=== PATIENT | female | born 1985 | race Caucasian/White ===

== ENCOUNTER 2022-08-25 17:03 | Inpatient (IN) | payer OTHER, SELFPAY ==
[2022-08-25 18:00] VITALS: BP 120/72; PULSE 110; TEMP 36.8; O2SAT 95
--- NOTE | 2022-08-25 18:49 | PC.ADMIT ---
pt is a 36 year old female who arrive to [facility] with possible suicidal attempt for taking 10 Benadryl and AH/VH. pt tox screen was negative. pt has a PMH of anticholinhergic toxicity, schizophrenia, alcohol use disorder, cocaine use disorder, and meth use. during admission, pt appear calm and collected, but tired. pt answered all the question during admission. pt reports no AH/VH, but was looking at something in the corner of the room. pt is noncompliant with meds. pt went to room to sleep.
[2022-08-25] MEDS: LORazepam 1 MG TABLET 2 MG PO (19:35)
[2022-08-26] MEDS: risperiDONE 2 MG TABLET PO ×2 (08:26→19:51)
[2022-08-26] MEDS: Benztropine Mesylate 1 MG TABLET PO ×2 (08:26→19:52)
[2022-08-26 09:09] LABS: Estimated Average Glucose 94 mg/dL; Hemoglobin A1c % 4.9 %
[2022-08-26 09:23] LABS: Alanine Aminotransferase 51 U/L (0-31); Albumin Level 3.7 g/dL (3.5-5.0); Alkaline Phosphatase 60 U/L (39-117); Anion Gap 16 (12-20); Aspartate Amino Transferase 21 U/L (5-31); Bilirubin Total 0.2 mg/dL (0.0-1.0); Blood Urea Nitrogen 10 mg/dL (9-16); Calcium 8.7 mg/dL (8.4-10.2); Carbon Dioxide 26 mmol/L (22-29); Chloride 102 mmol/L (96-108); Cholesterol 157 mg/dL; Estimated Glomerular Filt Rate > 60; Glucose Fasting 93 mg/dL (60-99); HDL Cholesterol 46 mg/dL; LDL Cholesterol Calculated 69 mg/dl; Potassium 3.6 mmol/L (3.3-5.1); Sodium 140 mmol/L (135-145); Total Protein 6.1 g/dL (6.5-8.0); Triglycerides 214 mg/dL
[2022-08-26 09:30] VITALS: BP 116/77; PULSE 102; RESP 18; TEMP 36.3; O2SAT 97
[2022-08-26 09:45] LABS: Thyroid Stimulating Hormone 0.41 uIU/mL (0.32-4.0)
[2022-08-26 10:18] LABS: Folate 9.6 ng/mL (> or = 4.0); Vitamin B12 188 pg/mL (200-900)
[2022-08-26] MEDS: hydrOXYzine HCL 25 MG TABLET PO ×2 (11:59→17:39)
--- NOTE | 2022-08-26 13:10 | HO.PM.IMCN ---
History of Present Illness Data of Consult Service Date: 08/26/22 Requesting physician: Xochilt Barry Primary Care Provider: None Physician HPI Reason for consult: medical h&p 36 year old female with history of schizoaffective disorder, anxiety and polysubstance abuce (lsd, ecstacy, amphetamines, cocaine, heroin last use many months ago) admitted to psychiatry with consult placed for medical H&P. She has had dry cracked left corner of the lip for 3-4 weeks without resolution. No drainage. No pain. No other medical complaints. Review of Systems Review of Systems: General: No fevers, malaise, unintentional weight loss HEENT: No blrred vision or diplopia Cardiovascular: No chest pain, palpitations, or leg edema Respiratory: No shortness of breath, wheezing, cough GI: No abdominal pain, nausea, vomiting, diarrhea, constipation, melena, hematochezia Gu: No dysuria, hematuria, increased urinary frequency Neuro: No headaches, weakness, paresthesias Skin: +lesion left corner lip. No other rashes or lesions [facility] Medical History (Updated 08/26/22 @ 13:24 by EBONIE Reynoso) Anxiety Schizoaffective disorder Family History (Updated 08/26/22 @ 13:20 by EBONIE Reynoso) Mother No problems noted. Father No problems noted. Social History Household Members: Significant Other Housing: Apartment Do you presently have visiting nurse or other home services: No Patient Tobacco Use Status: Former Tobacco user Cigarettes Per Day: 5 Patient Interested in Nicotine Replacement: No Patient Given Instructions on How to Stop Smoking: No Second Hand Smoke Exposure: No Use of substances other than those prescribed or required for medical reasons: No Currently Displaying Signs/Symptoms of Drug Intoxication Withdrawal: No Have you been hit, kicked, punched, or otherwise hurt by someone within the past year? If so, by whom?: No Do you feel safe in your current relationship?: Yes Is there a partner from a previous relationship who is making you feel unsafe now?: No Are you made to feel afraid or neglected: No Advance Directives: No Advance Directives Information Provided: No (Declined) Do you have thoughts of harming others: None Do you have a plan to hurt others: No Plan Recently lost weight without trying: Yes How much weight loss: 2-13 pounds Eating poorly because of decreased appetite: No Nutrition screen score: 3 Nutrition Risks: No Nutritional Risk Patient : No : No Poor oral hygiene: No service: No Sexual orientation: Straight/Heterosexual Meds Allergies Allergy/AdvReac Type Severity Reaction Status Date / Time No Known Allergies Allergy Unverified 08/15/20 19:32 [No Known Allergies*] Active Medications: Current Medications Acetaminophen (Acetaminophen 325 Mg Tablet) 650 mg PO Q6H PRN PRN Reason: Headache/Pain Mild Scale (1-3) Al Hydroxide/Mg Hydroxide (Magnesium Hydrox/Alum Hydrox 30 Ml Oral.Susp) 30 ml PO Q6H PRN PRN Reason: Heartburn/Nausea Benztropine Mesylate (Benztropine Mesylate 1 Mg Tablet) 1 mg PO BID [facility] Last Admin: 08/26/22 08:26 Dose: 1 mg Hydrocortisone (Hydrocortisone 1 % Ointment 28.35 Gm Tube) 1 appl TOPICAL BID [facility]; Protocol Hydroxyzine HCl (Hydroxyzine Hcl 25 Mg Tablet) 25 mg PO Q6H PRN PRN Reason: Anxiety Last Admin: 08/26/22 11:59 Dose: 25 mg Magnesium Hydroxide (Milk Of Magnesia 30 Ml Oral.Susp) 30 ml PO DAILY PRN PRN Reason: Constipation Risperidone (Risperidone 2 Mg Tablet) 2 mg PO BID [facility] Last Admin: 08/26/22 08:26 Dose: 2 mg Trazodone HCl (Trazodone Hcl 50 Mg Tablet) 50 mg PO BEDTIME PRN PRN Reason: Insomnia Trazodone HCl (Trazodone Hcl 100 Mg Tablet) 100 mg PO BEDTIME [facility] Last Admin: 08/25/22 21:28 Dose: Not Given Physical Exam Vital Signs and Narrative: Vital Signs: Last Vital Signs Temp 97.4 F 08/26/22 09:30 Pulse 102 H 08/26/22 09:30 Resp 18 08/26/22 09:30 BP 116/77 08/26/22 09:30 Pulse Ox 97 08/26/22 09:30 O2 Del Method 08/26/22 09:30 Constitutional - Awake and Alert, No apparent distress Eyes - PERRLA, EOMI Cardiovascular - S1S2, RRR, No edema Respiratory - Normal lung expansion, Normal respiratory effort, No respiratory distress, CTA bilaterally Gastrointestinal - NT / ND; +BS; No rebound or guarding Extremities - no calf tenderness bilaterally, no swelling Musculoskeletal - Normal inspection, normal ROM Skin - Warm/Dry. Dry, cracked lesion left corner mouth Neurological - Alert & oriented x3, CN II-XII in tact, 5/5 strength BUE and BLE Psychological - Appropriate affect Results Labs CBC and Chem 7: 08/26/22 08:16 Labs: Laboratory Results - last 24 hr 08/26/22 08/26/22 08/26/22 08:16 08:16 08:16 Anion Gap 16 Estim Creat Clear Calc TNP Estimated GFR > 60 Fasting Glucose 93 Estimat Average Glucose 94 Hemoglobin A1c % 4.9 Calcium 8.7 Total Bilirubin 0.2 AST 21 ALT 51 H Alkaline Phosphatase 60 Total Protein 6.1 L Albumin 3.7 Triglycerides 214 Cholesterol 157 LDL Cholesterol, Calc 69 HDL Cholesterol 46 Vitamin B12 188 L Folate 9.6 TSH 0.41 Assessment and Plan (1) Schizoaffective disorder: Status: Acute Plan 36 year old female with history of schizoaffective disorder, anxiety and polysubstance abuce (lsd, ecstacy, amphetamines, cocaine, heroin last use many months ago) admitted to psychiatry with consult placed for medical H&P. 1- Schizoaffective disorder/anxiety -plan per psychiatry 2-Polysubstance abuse in remission -plan per psychiatry 3-Left corner lip llesion -Present for several weeks without burning pain. Most likely cheilitis, topical hydrocortisone ointment ordered -Less likely cold sore- would be outside of window of treatment Thank you for allowing me to participate in this consult. Signing off at this time. Please do not hesitate to call for further questions.
--- NOTE | 2022-08-26 16:17 | P.HPPS_ITS ---
HPI Date of Service: 08/26/22 Chief Complaint: Schizoaffecive D/O Sources of Information: patient interviewed, chart reviewed and crisis/core team assessment reviewed HPI Subjective Notes: Reddy Warning and Conditional Voluntary Healthcare Proxy: No Guardianship: No Medical Problems Affecting Mental Status: No Narrative: 36 yo female, hx of schizoaffective disorder, s/p overdose of #10 sleeping pills OTC to assist in sleep vs SI. Reports VH, denies AH. Recent [facility] admit where she ran out of meds, did not follow up with providers and decompensated. Reports anxiety as a primary symptom along with homelessness as a major stress. Pt, when presented was responding to internal stimuli. She is not working, is not on disability, has no day structure and does not receive any type of assistance. She is having difficulty with independent living Past Psychiatric History: IP: [facility] 06/19 OP: Denies current alliances [facility] Medical Evaluation Reviewed: Yes [facility] Medical History Anxiety Schizoaffective disorder Family History: Depression, Anxiety Social History: Born and raised in [place] ([facility]) One brother, one sister Eleventh grade education No current employment, no disability Has been staying with ex-boyfriend Substance History: Hx alcohol relapse Hx of rehab Denies other substance use Trauma History: Affirms Diagnostics Vital Signs (24Hr): Vital Signs - 24 hr 08/25/22 18:00 08/26/22 09:30 Temperature 98.2 F 97.4 F Pulse Rate 110 H 102 H Respiratory Rate 18 Blood Pressure 120/72 116/77 Pulse Oximetry 95 97 Oxygen Delivery Method Room Air Room Air Labs Results: 08/26/22 08:16 Labs: Laboratory Results - last 48 hr 08/26/22 08/26/22 08/26/22 08:16 08:16 08:16 Sodium 140 Potassium 3.6 Chloride 102 Carbon Dioxide 26 Anion Gap 16 BUN 10 Creatinine 0.67 Estim Creat Clear Calc TNP Estimated GFR > 60 Fasting Glucose 93 Estimat Average Glucose 94 Hemoglobin A1c % 4.9 Calcium 8.7 Total Bilirubin 0.2 AST 21 ALT 51 H Alkaline Phosphatase 60 Total Protein 6.1 L Albumin 3.7 Triglycerides 214 Cholesterol 157 LDL Cholesterol, Calc 69 HDL Cholesterol 46 Vitamin B12 188 L Folate 9.6 TSH 0.41 Meds/Allergies Allergies Allergies Allergy/AdvReac Type Severity Reaction Status Date / Time No Known Allergies Allergy Unverified 08/15/20 19:32 [No Known Allergies*] Mental Status Exam Mental Status Exam Patient Appearance: Disheveled Patient Orientation: Person, Place, Time and Situation Level of Consciousness: Alert Patient Behavior: Talkative and Good Eye Contact Mood Description: Anxious Affect Description: Anxious Patient Cognition Impaired: Yes Ability to Follow Directions: Good Speech Pattern: Spontaneous Speech Memory Description: Episodic Impaired Hallucinations: Auditory Delusions: Paranoid Ideation and Present Perceptual Disturbances: Depersonalization and Derealization Thought Process: Distracted Thought Content: positive for Circumstantial, positive for Perseveration and positive for Suicidal Ideation (denies) Depressive Symptoms: Increased Anxiety, Feelings of Worthlessness and Unhappiness Abnormal Motor Activity Signs and Symptoms: Restlessness Judgement: Poor Assessment & Plan Assessment & Plan (1) Schizoaffective disorder: Status: Acute Code(s): F25.9 - Schizoaffective disorder, unspecified Plan 36 yo female, hx of schizoaffective disorder, currently off medications, with active sx. Hx of alcohol use disorder, pt reports recent relapse, drinking 1-2 daily and without detox sx. Will put CIWA in place to monitor. Pt reports target sx is anxiety. Will re-start Gabapentin, Propranolol along with Risperdal and monitor Plan: As noted above Monitor Family collateral contact Pt believes she could return to [facility] to live with the family. Patient educated on: medication risk/benefits and therapeutic strategies Informed Consent: further education needed Reason for continued inpatient stay Substantial Risk for: rapid decompensation
[2022-08-26 17:32] VITALS: BP 122/68; PULSE 99; RESP 16; TEMP 36.4; O2SAT 97
[2022-08-26] MEDS: Gabapentin 300 MG CAPSULE PO (19:51)
[2022-08-26] MEDS: Propranolol HCL 10 MG TABLET PO (19:51)
[2022-08-26] MEDS: traZODone HCL 100 MG TABLET PO (19:52)
[2022-08-27] MEDS: Propranolol HCL 10 MG TABLET PO ×3 (08:21→20:05)
[2022-08-27] MEDS: Gabapentin 300 MG CAPSULE PO (08:21)
[2022-08-27] MEDS: risperiDONE 2 MG TABLET PO ×2 (08:21→20:07)
[2022-08-27] MEDS: Cyanocobalamin (Vitamin B-12) 1,000 MCG TABLET 1000 MCG PO (08:21)
[2022-08-27] MEDS: Benztropine Mesylate 1 MG TABLET PO ×2 (08:21→20:07)
[2022-08-27] MEDS: Thiamine HCL 100 MG TABLET PO (08:21)
[2022-08-27 09:00] VITALS: BP 133/74; PULSE 89; RESP 14; TEMP 36.3; O2SAT 98
--- NOTE | 2022-08-27 09:33 | P.PNPSI_ITS ---
Subjective Subjective Date of Service: 08/27/22 Reason For Visit: Schizoaffecive D/O Subjective Notes: Conditional Voluntary Interim History: Denies SI, HI Flat Depression/Anxiety Sx 8 Believes someone may be attempting to try to kill her. Medication review. Discussed changes to target anxiety, sleep Medication Compliance: Yes Side effects from medications: No Attending Groups: Intermittent Review of Systems Acute medical concerns: No Medical Review of Systems: unchanged Mental Status Exam Mental Status Exam Patient Appearance: Disheveled Patient Orientation: Person, Place, Time and Situation Level of Consciousness: Alert Patient Behavior: Talkative and Good Eye Contact Mood Description: Anxious Affect Description: Anxious Patient Cognition Impaired: Yes Ability to Follow Directions: Good Speech Pattern: Spontaneous Speech Memory Description: Episodic Impaired Hallucinations: Auditory Delusions: Paranoid Ideation and Present Perceptual Disturbances: Depersonalization and Derealization Thought Process: Distracted Thought Content: positive for Circumstantial, positive for Perseveration and positive for Suicidal Ideation (denies) Depressive Symptoms: Increased Anxiety, Feelings of Worthlessness and Unhappiness Abnormal Motor Activity Signs and Symptoms: Restlessness Judgement: Poor Diagnostics Vital Signs (24Hr): Vital Signs - 24 hr 08/26/22 17:32 08/27/22 09:00 Temperature 97.6 F 97.3 F Pulse Rate 99 89 Respiratory Rate 16 14 Blood Pressure 122/68 133/74 Pulse Oximetry 97 98 Oxygen Delivery Method Room Air Room Air Labs Results: 08/26/22 08:16 Labs: Laboratory Results - last 48 hr 08/26/22 08/26/22 08/26/22 08:16 08:16 08:16 Sodium 140 Potassium 3.6 Chloride 102 Carbon Dioxide 26 Anion Gap 16 BUN 10 Creatinine 0.67 Estim Creat Clear Calc TNP Estimated GFR > 60 Fasting Glucose 93 Estimat Average Glucose 94 Hemoglobin A1c % 4.9 Calcium 8.7 Total Bilirubin 0.2 AST 21 ALT 51 H Alkaline Phosphatase 60 Total Protein 6.1 L Albumin 3.7 Triglycerides 214 Cholesterol 157 LDL Cholesterol, Calc 69 HDL Cholesterol 46 Vitamin B12 188 L Folate 9.6 TSH 0.41 Medications Medications Current Medications Acetaminophen (Acetaminophen 325 Mg Tablet) 650 mg PO Q6H PRN PRN Reason: Headache/Pain Mild Scale (1-3) Al Hydroxide/Mg Hydroxide (Magnesium Hydrox/Alum Hydrox 30 Ml Oral.Susp) 30 ml PO Q6H PRN PRN Reason: Heartburn/Nausea Benztropine Mesylate (Benztropine Mesylate 1 Mg Tablet) 1 mg PO BID [facility] Last Admin: 08/27/22 08:21 Dose: 1 mg Cyanocobalamin (Cyanocobalamin (Vitamin B-12) 1,000 Mcg Tablet) 1,000 mcg PO DAILY [facility] Last Admin: 08/27/22 08:21 Dose: 1,000 mcg Gabapentin (Gabapentin 300 Mg Capsule) 300 mg PO TID [facility] Last Admin: 08/27/22 08:21 Dose: 300 mg Hydrocortisone (Hydrocortisone 1 % Ointment 28.35 Gm Tube) 1 appl TOPICAL BID [facility]; Protocol Last Admin: 08/27/22 09:02 Dose: Not Given Hydroxyzine HCl (Hydroxyzine Hcl 25 Mg Tablet) 25 mg PO Q6H PRN PRN Reason: Anxiety Last Admin: 08/26/22 17:39 Dose: 25 mg Magnesium Hydroxide (Milk Of Magnesia 30 Ml Oral.Susp) 30 ml PO DAILY PRN PRN Reason: Constipation Propranolol HCl (Propranolol Hcl 10 Mg Tablet) 10 mg PO BID [facility]; Protocol Last Admin: 08/27/22 08:21 Dose: 10 mg Quetiapine Fumarate (Quetiapine Fumarate 50 Mg Tablet) 50 mg PO BID PRN PRN Reason: anxiety Risperidone (Risperidone 2 Mg Tablet) 2 mg PO BID [facility] Last Admin: 08/27/22 08:21 Dose: 2 mg Thiamine HCl (Thiamine Hcl 100 Mg Tablet) 100 mg PO DAILY [facility] Last Admin: 08/27/22 08:21 Dose: 100 mg Trazodone HCl (Trazodone Hcl 50 Mg Tablet) 50 mg PO BEDTIME PRN PRN Reason: Insomnia Trazodone HCl (Trazodone Hcl 100 Mg Tablet) 100 mg PO BEDTIME [facility] Last Admin: 08/26/22 19:52 Dose: 100 mg Allergies Allergies Allergy/AdvReac Type Severity Reaction Status Date / Time No Known Allergies Allergy Unverified 08/15/20 19:32 [No Known Allergies*] Assessment & Plan Assessment & Plan (1) Schizoaffective disorder: Status: Acute Code(s): F25.9 - Schizoaffective disorder, unspecified Plan 36 yo female, hx of schizoaffective disorder, currently off medications, with active sx. Hx of alcohol use disorder, pt reports recent relapse, drinking 1-2 daily and without detox sx. Will put CIWA in place to monitor. Pt reports target sx is anxiety. Will re-start Gabapentin, Propranolol along with Risperdal and monitor Plan: As noted above Monitor Family collateral contact Pt believes she could return to [facility] to live with the family. 08/27/22. Reports insomnia/anxiety are target sx. Discussed current homelessness. Pt will discuss with family possible return to the [facility] Seroquel 50 mg hs (anxiety, insomnia, fear, paranoia) Increase Gabapentin to 400 mg tid (anxiety) Increase Propranolol to 10 mg tid (anxiety) I spent minutes with the patient and/or on the patient floor today, greater than?50% of which was spent counseling/coordinating care. Patient educated on: medication risk/benefits and therapeutic strategies Informed Consent: further education needed Reason for contiued inpatient stay Substantial Risk for: inability to function and rapid decompensation
[2022-08-27] MEDS: Gabapentin 400 MG CAPSULE PO ×2 (15:13→20:07)
[2022-08-27 18:00] VITALS: BP 114/75; PULSE 84; TEMP 36.8; O2SAT 98
[2022-08-27] MEDS: QUEtiapine Fumarate 50 MG TABLET PO (20:07)
[2022-08-27] MEDS: traZODone HCL 100 MG TABLET PO (20:07)
[2022-08-28] MEDS: Propranolol HCL 10 MG TABLET PO ×3 (09:11→20:12)
[2022-08-28] MEDS: Benztropine Mesylate 1 MG TABLET PO ×2 (09:11→20:13)
[2022-08-28] MEDS: Thiamine HCL 100 MG TABLET PO (09:11)
[2022-08-28] MEDS: Gabapentin 400 MG CAPSULE PO ×3 (09:11→20:12)
[2022-08-28] MEDS: Cyanocobalamin (Vitamin B-12) 1,000 MCG TABLET 1000 MCG PO (09:11)
[2022-08-28] MEDS: risperiDONE 2 MG TABLET PO ×2 (09:11→20:12)
[2022-08-28 09:19] VITALS: BP 122/73; PULSE 90; RESP 18; TEMP 36.4; O2SAT 96
--- NOTE | 2022-08-28 13:25 | HO.PSYCHPN ---
Subjective Subjective Date of Service: 08/28/22 Reason For Visit: Schizoaffecive D/O Subjective Notes: Conditional Voluntary Healthcare Proxy: No Guardianship: No Medical Problems Affecting Mental Status: No Interim History: Sherley reports improved sleep. She is not detoxing, we will stop CIWA assessment She is talking with team about worry about someone wanting to harm her in the community. Today, she reports no symptoms of concern and will consider contacting family over the weekend to discuss a potential living situation. Medication Compliance: Yes Side effects from medications: No Attending Groups: Intermittent Review of Systems Acute medical concerns: No Medical Review of Systems: unchanged Mental Status Exam Mental Status Exam Patient Appearance: Disheveled Patient Orientation: Person, Place, Time and Situation Level of Consciousness: Alert Patient Behavior: Talkative and Good Eye Contact Mood Description: Anxious Affect Description: Anxious Patient Cognition Impaired: Yes Ability to Follow Directions: Good Speech Pattern: Spontaneous Speech Memory Description: Episodic Impaired Hallucinations: Auditory Delusions: Paranoid Ideation and Present Perceptual Disturbances: Depersonalization and Derealization Thought Process: Distracted Thought Content: positive for Circumstantial, positive for Perseveration and positive for Suicidal Ideation (denies) Depressive Symptoms: Increased Anxiety, Feelings of Worthlessness and Unhappiness Abnormal Motor Activity Signs and Symptoms: Restlessness Judgement: Poor Diagnostics Vital Signs (24Hr): Vital Signs - 24 hr 08/27/22 18:00 08/28/22 09:19 Temperature 98.2 F 97.6 F Pulse Rate 84 90 Respiratory Rate 18 Blood Pressure 114/75 122/73 Pulse Oximetry 98 96 Oxygen Delivery Method Room Air Labs Results: 08/26/22 08:16 Medications Medications Current Medications Acetaminophen (Acetaminophen 325 Mg Tablet) 650 mg PO Q6H PRN PRN Reason: Headache/Pain Mild Scale (1-3) Al Hydroxide/Mg Hydroxide (Magnesium Hydrox/Alum Hydrox 30 Ml Oral.Susp) 30 ml PO Q6H PRN PRN Reason: Heartburn/Nausea Benztropine Mesylate (Benztropine Mesylate 1 Mg Tablet) 1 mg PO BID [facility] Last Admin: 08/28/22 09:11 Dose: 1 mg Cyanocobalamin (Cyanocobalamin (Vitamin B-12) 1,000 Mcg Tablet) 1,000 mcg PO DAILY [facility] Last Admin: 08/28/22 09:11 Dose: 1,000 mcg Gabapentin (Gabapentin 400 Mg Capsule) 400 mg PO TID [facility] Last Admin: 08/28/22 09:11 Dose: 400 mg Hydrocortisone (Hydrocortisone 1 % Ointment 28.35 Gm Tube) 1 appl TOPICAL BID [facility]; Protocol Last Admin: 08/28/22 09:12 Dose: Not Given Hydroxyzine HCl (Hydroxyzine Hcl 25 Mg Tablet) 25 mg PO Q6H PRN PRN Reason: Anxiety Last Admin: 08/26/22 17:39 Dose: 25 mg Magnesium Hydroxide (Milk Of Magnesia 30 Ml Oral.Susp) 30 ml PO DAILY PRN PRN Reason: Constipation Propranolol HCl (Propranolol Hcl 10 Mg Tablet) 10 mg PO TID [facility]; Protocol Last Admin: 08/28/22 09:11 Dose: 10 mg Quetiapine Fumarate (Quetiapine Fumarate 50 Mg Tablet) 50 mg PO BID PRN PRN Reason: anxiety Quetiapine Fumarate (Quetiapine Fumarate 50 Mg Tablet) 50 mg PO BEDTIME [facility] Last Admin: 08/27/22 20:07 Dose: 50 mg Risperidone (Risperidone 2 Mg Tablet) 2 mg PO BID [facility] Last Admin: 08/28/22 09:11 Dose: 2 mg Thiamine HCl (Thiamine Hcl 100 Mg Tablet) 100 mg PO DAILY [facility] Last Admin: 08/28/22 09:11 Dose: 100 mg Trazodone HCl (Trazodone Hcl 50 Mg Tablet) 50 mg PO BEDTIME PRN PRN Reason: Insomnia Trazodone HCl (Trazodone Hcl 100 Mg Tablet) 100 mg PO BEDTIME [facility] Last Admin: 08/27/22 20:07 Dose: 100 mg Allergies Allergies Allergy/AdvReac Type Severity Reaction Status Date / Time No Known Allergies Allergy Unverified 08/15/20 19:32 [No Known Allergies*] Assessment & Plan Assessment & Plan (1) Schizoaffective disorder: Status: Acute Code(s): F25.9 - Schizoaffective disorder, unspecified Plan 36 yo female, hx of schizoaffective disorder, currently off medications, with active sx. Hx of alcohol use disorder, pt reports recent relapse, drinking 1-2 daily and without detox sx. Will put CIWA in place to monitor. Pt reports target sx is anxiety. Will re-start Gabapentin, Propranolol along with Risperdal and monitor Plan: As noted above Monitor Family collateral contact Pt believes she could return to [facility] to live with the family. 9/30/22- Continue current regime EKG-use of atypicals. I spent minutes with the patient and/or on the patient floor today, greater than?50% of which was spent counseling/coordinating care. Patient educated on: medication risk/benefits and therapeutic strategies Informed Consent: further education needed Reason for contiued inpatient stay Substantial Risk for: harm to self, inability to function and rapid decompensation
[2022-08-28 14:39] VITALS: BP 119/66; PULSE 96
[2022-08-28 18:00] VITALS: RESP 16
[2022-08-28] MEDS: traZODone HCL 100 MG TABLET PO (20:13)
[2022-08-28] MEDS: QUEtiapine Fumarate 50 MG TABLET PO (20:13)
[2022-08-29 09:30] VITALS: BP 101/70; PULSE 83; RESP 18; TEMP 36.3; O2SAT 97
[2022-08-29] MEDS: Benztropine Mesylate 1 MG TABLET PO ×2 (09:35→20:34)
[2022-08-29] MEDS: risperiDONE 2 MG TABLET PO ×2 (09:35→20:34)
[2022-08-29] MEDS: Cyanocobalamin (Vitamin B-12) 1,000 MCG TABLET 1000 MCG PO (09:35)
[2022-08-29] MEDS: Propranolol HCL 10 MG TABLET PO ×3 (09:35→20:34)
[2022-08-29] MEDS: Gabapentin 400 MG CAPSULE PO ×3 (09:35→20:34)
[2022-08-29] MEDS: Thiamine HCL 100 MG TABLET PO (09:35)
[2022-08-29 14:24] VITALS: BP 107/65; PULSE 84
--- NOTE | 2022-08-29 15:49 | HO.PSYCHPN ---
Subjective Subjective Date of Service: 08/29/22 Reason For Visit: Schizoaffecive D/O Subjective Notes: Conditional Voluntary Healthcare Proxy: No Guardianship: No Medical Problems Affecting Mental Status: No Interim History: nursing report isolated for 2 days, pt out on unit asking for crackers- says she is eating, sleeping ok - denies problems- taking medications Medication Compliance: Yes Side effects from medications: No Attending Groups: Intermittent Review of Systems Acute medical concerns: No Mental Status Exam Mental Status Exam Narrative: dressed in mitchell Patient Appearance: Appropriate (slightly messy hair) Patient Orientation: Person, Place, Time and Situation Level of Consciousness: Awake and Appropriate Patient Behavior: Cooperative, Passive and Avoidant Mood Description: Withdrawn Affect Description: Apathetic and Blunted Patient Cognition Impaired: No Ability to Follow Directions: Fair Speech Pattern: Clear and Impoverished Thought Process: Distracted Thought Content: positive for [place] Judgement: Fair Diagnostics Vital Signs (24Hr): Vital Signs - 24 hr 08/28/22 18:00 08/29/22 09:30 08/29/22 14:24 Temperature 97.3 F Pulse Rate 83 84 Respiratory Rate 16 18 Blood Pressure 101/70 107/65 Pulse Oximetry 97 Oxygen Delivery Method Room Air Labs Results: 08/26/22 08:16 Medications Medications Current Medications Acetaminophen (Acetaminophen 325 Mg Tablet) 650 mg PO Q6H PRN PRN Reason: Headache/Pain Mild Scale (1-3) Al Hydroxide/Mg Hydroxide (Magnesium Hydrox/Alum Hydrox 30 Ml Oral.Susp) 30 ml PO Q6H PRN PRN Reason: Heartburn/Nausea Benztropine Mesylate (Benztropine Mesylate 1 Mg Tablet) 1 mg PO BID [facility] Last Admin: 08/29/22 09:35 Dose: 1 mg Cyanocobalamin (Cyanocobalamin (Vitamin B-12) 1,000 Mcg Tablet) 1,000 mcg PO DAILY [facility] Last Admin: 08/29/22 09:35 Dose: 1,000 mcg Gabapentin (Gabapentin 400 Mg Capsule) 400 mg PO TID [facility] Last Admin: 08/29/22 14:22 Dose: 400 mg Hydrocortisone (Hydrocortisone 1 % Ointment 28.35 Gm Tube) 1 appl TOPICAL BID [facility]; Protocol Last Admin: 08/29/22 09:36 Dose: Not Given Hydroxyzine HCl (Hydroxyzine Hcl 25 Mg Tablet) 25 mg PO Q6H PRN PRN Reason: Anxiety Last Admin: 08/26/22 17:39 Dose: 25 mg Magnesium Hydroxide (Milk Of Magnesia 30 Ml Oral.Susp) 30 ml PO DAILY PRN PRN Reason: Constipation Propranolol HCl (Propranolol Hcl 10 Mg Tablet) 10 mg PO TID [facility]; Protocol Last Admin: 08/29/22 14:22 Dose: 10 mg Quetiapine Fumarate (Quetiapine Fumarate 50 Mg Tablet) 50 mg PO BID PRN PRN Reason: anxiety Quetiapine Fumarate (Quetiapine Fumarate 50 Mg Tablet) 50 mg PO BEDTIME [facility] Last Admin: 08/28/22 20:13 Dose: 50 mg Risperidone (Risperidone 2 Mg Tablet) 2 mg PO BID [facility] Last Admin: 08/29/22 09:35 Dose: 2 mg Thiamine HCl (Thiamine Hcl 100 Mg Tablet) 100 mg PO DAILY [facility] Last Admin: 08/29/22 09:35 Dose: 100 mg Trazodone HCl (Trazodone Hcl 50 Mg Tablet) 50 mg PO BEDTIME PRN PRN Reason: Insomnia Trazodone HCl (Trazodone Hcl 100 Mg Tablet) 100 mg PO BEDTIME [facility] Last Admin: 08/28/22 20:13 Dose: 100 mg Allergies Allergies Allergy/AdvReac Type Severity Reaction Status Date / Time No Known Allergies Allergy Unverified 08/15/20 19:32 [No Known Allergies*] Assessment & Plan Assessment & Plan (1) Schizoaffective disorder: Status: Acute Code(s): F25.9 - Schizoaffective disorder, unspecified Assessment and Plan: continue current treatment plan encourage pt to be out of room more as tolerated, attend to ADLS, engage in groups or mileu Plan 36 yo female, hx of schizoaffective disorder, currently off medications, with active sx. Hx of alcohol use disorder, pt reports recent relapse, drinking 1-2 daily and without detox sx. Will put CIDC in place to monitor. Pt reports target sx is anxiety. Will re-start Gabapentin, Propranolol along with Risperdal and monitor Plan: As noted above Monitor Family collateral contact Pt believes she could return to [facility] to live with the family. 08/28/22- Continue current regime EKG-use of atypicals. I spent minutes with the patient and/or on the patient floor today, greater than?50% of which was spent counseling/coordinating care. Patient educated on: therapeutic strategies Informed Consent: further education needed Reason for contiued inpatient stay Substantial Risk for: rapid decompensation
[2022-08-29 16:13] VITALS: BP 120/66; PULSE 96; TEMP 36.2; O2SAT 97
[2022-08-29] MEDS: traZODone HCL 100 MG TABLET PO (20:34)
[2022-08-29] MEDS: QUEtiapine Fumarate 50 MG TABLET PO (20:34)
[2022-08-30] MEDS: Benztropine Mesylate 1 MG TABLET PO ×2 (08:49→20:34)
[2022-08-30] MEDS: Gabapentin 400 MG CAPSULE PO ×3 (08:49→20:34)
[2022-08-30] MEDS: risperiDONE 2 MG TABLET PO ×2 (08:49→20:34)
[2022-08-30] MEDS: Propranolol HCL 10 MG TABLET PO ×3 (08:49→20:34)
[2022-08-30] MEDS: Thiamine HCL 100 MG TABLET PO (08:49)
[2022-08-30] MEDS: Cyanocobalamin (Vitamin B-12) 1,000 MCG TABLET 1000 MCG PO (08:49)
[2022-08-30 08:51] VITALS: BP 109/67; PULSE 80; RESP 18; TEMP 36.6; O2SAT 97
--- NOTE | 2022-08-30 11:59 | P.PNPSI_ITS ---
Subjective Subjective Date of Service: 08/30/22 Reason For Visit: Schizoaffecive D/O Subjective Notes: Conditional Voluntary Healthcare Proxy: No Guardianship: No Medical Problems Affecting Mental Status: No Interim History: Pt continues isolated in her room, feels she is fine- Very vague symptoms- seems thought disordered- unclear what to adjust psychopharmacologically- will continue to see if this dose of risperidone is adequate Medication Compliance: Yes Side effects from medications: No Attending Groups: No Review of Systems Acute medical concerns: No Mental Status Exam Mental Status Exam Patient Appearance: Unkempt Patient Orientation: Person, Place, Time and Situation Level of Consciousness: Awake and Alert Patient Behavior: Passive and Isolative Mood Description: Apathetic Affect Description: Blunted Ability to Follow Directions: Fair Speech Pattern: Impoverished Hallucinations: None Delusions: Not Present Thought Process: Slowed Thinking Thought Content: positive for [place] of Content and positive for Thought Blocking Judgement: Fair Diagnostics Vital Signs (24Hr): Vital Signs - 24 hr 08/29/22 14:24 08/29/22 16:13 08/30/22 08:51 Temperature 97.1 F 97.8 F Pulse Rate 84 96 80 Respiratory Rate 18 Blood Pressure 107/65 120/66 109/67 Pulse Oximetry 97 97 Oxygen Delivery Method Room Air Room Air Labs Results: 08/26/22 08:16 Medications Medications Current Medications Acetaminophen (Acetaminophen 325 Mg Tablet) 650 mg PO Q6H PRN PRN Reason: Headache/Pain Mild Scale (1-3) Al Hydroxide/Mg Hydroxide (Magnesium Hydrox/Alum Hydrox 30 Ml Oral.Susp) 30 ml PO Q6H PRN PRN Reason: Heartburn/Nausea Benztropine Mesylate (Benztropine Mesylate 1 Mg Tablet) 1 mg PO BID [facility] Last Admin: 08/30/22 08:49 Dose: 1 mg Cyanocobalamin (Cyanocobalamin (Vitamin B-12) 1,000 Mcg Tablet) 1,000 mcg PO DAILY [facility] Last Admin: 08/30/22 08:49 Dose: 1,000 mcg Gabapentin (Gabapentin 400 Mg Capsule) 400 mg PO TID [facility] Last Admin: 08/30/22 08:49 Dose: 400 mg Hydrocortisone (Hydrocortisone 1 % Ointment 28.35 Gm Tube) 1 appl TOPICAL BID [facility]; Protocol Last Admin: 08/30/22 08:51 Dose: Not Given Hydroxyzine HCl (Hydroxyzine Hcl 25 Mg Tablet) 25 mg PO Q6H PRN PRN Reason: Anxiety Last Admin: 08/26/22 17:39 Dose: 25 mg Magnesium Hydroxide (Milk Of Magnesia 30 Ml Oral.Susp) 30 ml PO DAILY PRN PRN Reason: Constipation Propranolol HCl (Propranolol Hcl 10 Mg Tablet) 10 mg PO TID [facility]; Protocol Last Admin: 08/30/22 08:49 Dose: 10 mg Quetiapine Fumarate (Quetiapine Fumarate 50 Mg Tablet) 50 mg PO BID PRN PRN Reason: anxiety Quetiapine Fumarate (Quetiapine Fumarate 50 Mg Tablet) 50 mg PO BEDTIME [facility] Last Admin: 08/29/22 20:34 Dose: 50 mg Risperidone (Risperidone 2 Mg Tablet) 2 mg PO BID [facility] Last Admin: 08/30/22 08:49 Dose: 2 mg Thiamine HCl (Thiamine Hcl 100 Mg Tablet) 100 mg PO DAILY [facility] Last Admin: 08/30/22 08:49 Dose: 100 mg Trazodone HCl (Trazodone Hcl 50 Mg Tablet) 50 mg PO BEDTIME PRN PRN Reason: Insomnia Trazodone HCl (Trazodone Hcl 100 Mg Tablet) 100 mg PO BEDTIME [facility] Last Admin: 08/29/22 20:34 Dose: 100 mg Allergies Allergies Allergy/AdvReac Type Severity Reaction Status Date / Time No Known Allergies Allergy Unverified 08/15/20 19:32 [No Known Allergies*] Assessment & Plan Assessment & Plan (1) Schizoaffective disorder: Status: Acute Code(s): F25.9 - Schizoaffective disorder, unspecified Assessment and Plan: continue current treatment plan encourage pt to be out of room more as tolerated, attend to ADLS, engage in groups or mileu Plan 36 yo female, hx of schizoaffective disorder, currently off medications, with active sx. Hx of alcohol use disorder, pt reports recent relapse, drinking 1-2 daily and without detox sx. Will put CIAZ in place to monitor. Pt reports target sx is anxiety. Will re-start Gabapentin, Propranolol along with Risperdal and m onitor Plan: As noted above Monitor Family collateral contact Pt believes she could return to [facility] to live with the family. 08/28/22- Continue current regime EKG-use of atypicals. I spent minutes with the patient and/or on the patient floor today, greater than?50% of which was spent counseling/coordinating care. Patient educated on: medication risk/benefits Informed Consent: further education needed Reason for contiued inpatient stay Substantial Risk for: inability to function and rapid decompensation
[2022-08-30 16:59] VITALS: BP 128/75; PULSE 75; TEMP 36.6; O2SAT 99
[2022-08-30] MEDS: QUEtiapine Fumarate 50 MG TABLET PO (20:34)
[2022-08-30] MEDS: traZODone HCL 100 MG TABLET PO (20:34)
[2022-08-31] MEDS: Cyanocobalamin (Vitamin B-12) 1,000 MCG TABLET 1000 MCG PO (09:17)
[2022-08-31] MEDS: Thiamine HCL 100 MG TABLET PO (09:17)
[2022-08-31] MEDS: Benztropine Mesylate 1 MG TABLET PO ×2 (09:17→19:25)
[2022-08-31] MEDS: Gabapentin 400 MG CAPSULE PO ×3 (09:17→19:25)
[2022-08-31] MEDS: Propranolol HCL 10 MG TABLET PO ×3 (09:18→19:25)
[2022-08-31] MEDS: risperiDONE 2 MG TABLET PO ×2 (09:18→19:25)
[2022-08-31 09:20] VITALS: BP 121/65; PULSE 90; RESP 14
--- NOTE | 2022-08-31 10:00 | ECG_ITS ---
Test Reason : qtc check Blood Pressure : / mmHG Vent. Rate : 095 BPM Atrial Rate : 095 BPM P-R Int : 154 ms QRS Dur : 082 ms QT Int : 364 ms P-R-T Axes : 048 060 050 degrees QTc Int : 457 ms Normal sinus rhythm Normal ECG No previous ECGs available Referred By: Monika Sr Electronically Signed By:GYPSY STERN
[2022-08-31 16:39] VITALS: BP 126/78; PULSE 78; RESP 16; TEMP 36.6; O2SAT 99
--- NOTE | 2022-08-31 16:51 | P.PNPSI_ITS ---
Subjective Subjective Date of Service: 08/31/22 Reason For Visit: Schizoaffecive D/O Subjective Notes: Conditional Voluntary Healthcare Proxy: No Guardianship: No Medical Problems Affecting Mental Status: No Interim History: Pt remains isolative, stating she would like to remain in patient for as long as possible. Appears sedate at times, yet denies sx. Denies SI, sx of psychosis. Vague about discharge planning. Believes she will be able to return to her family home in the [facility] she talked with her family and they agree to this. Beginning her aftercare planning. Intermittent milieu involvement. Medication Compliance: Yes Side effects from medications: No Attending Groups: Intermittent Review of Systems Acute medical concerns: No Medical Review of Systems: unchanged Mental Status Exam Mental Status Exam Patient Appearance: Fatigued Patient Orientation: Person, Place, Time and Situation Level of Consciousness: Alert Patient Behavior: Talkative and Good Eye Contact Mood Description: Flat Affect Description: Flat Patient Cognition Impaired: No Ability to Follow Directions: Good Speech Pattern: Monotone, Spontaneous Speech and Soft-Spoken Memory Description: Episodic Impaired Hallucinations: None Delusions: Present Perceptual Disturbances: Depersonalization and Derealization Thought Process: Distracted Thought Content: positive for Suicidal Ideation (denies) Depressive Symptoms: Sleeping More Than Usual and Thoughts of /Suicide (denies) Judgement: Fair Diagnostics Vital Signs (24Hr): Vital Signs - 24 hr 08/30/22 16:59 08/31/22 09:20 08/31/22 16:39 Temperature 98 F 97.8 F Pulse Rate 75 90 78 Respiratory Rate 14 16 Blood Pressure 128/75 121/65 126/78 Pulse Oximetry 99 99 Oxygen Delivery Method Room Air Room Air Room Air Labs Results: 08/26/22 08:16 Medications Medications Current Medications Acetaminophen (Acetaminophen 325 Mg Tablet) 650 mg PO Q6H PRN PRN Reason: Headache/Pain Mild Scale (1-3) Al Hydroxide/Mg Hydroxide (Magnesium Hydrox/Alum Hydrox 30 Ml Oral.Susp) 30 ml PO Q6H PRN PRN Reason: Heartburn/Nausea Benztropine Mesylate (Benztropine Mesylate 1 Mg Tablet) 1 mg PO BID [facility] Last Admin: 08/31/22 09:17 Dose: 1 mg Cyanocobalamin (Cyanocobalamin (Vitamin B-12) 1,000 Mcg Tablet) 1,000 mcg PO DAILY [facility] Last Admin: 08/31/22 09:17 Dose: 1,000 mcg Gabapentin (Gabapentin 400 Mg Capsule) 400 mg PO TID [facility] Last Admin: 08/31/22 14:28 Dose: 400 mg Hydrocortisone (Hydrocortisone 1 % Ointment 28.35 Gm Tube) 1 appl TOPICAL BID [facility]; Protocol Last Admin: 08/31/22 09:21 Dose: Not Given Hydroxyzine HCl (Hydroxyzine Hcl 25 Mg Tablet) 25 mg PO Q6H PRN PRN Reason: Anxiety Last Admin: 08/26/22 17:39 Dose: 25 mg Magnesium Hydroxide (Milk Of Magnesia 30 Ml Oral.Susp) 30 ml PO DAILY PRN PRN Reason: Constipation Propranolol HCl (Propranolol Hcl 10 Mg Tablet) 10 mg PO TID [facility]; Protocol Last Admin: 08/31/22 14:28 Dose: 10 mg Quetiapine Fumarate (Quetiapine Fumarate 50 Mg Tablet) 50 mg PO BID PRN PRN Reason: anxiety Quetiapine Fumarate (Quetiapine Fumarate 50 Mg Tablet) 50 mg PO BEDTIME [facility] Last Admin: 08/30/22 20:34 Dose: 50 mg Risperidone (Risperidone 2 Mg Tablet) 2 mg PO BID [facility] Last Admin: 08/31/22 09:18 Dose: 2 mg Thiamine HCl (Thiamine Hcl 100 Mg Tablet) 100 mg PO DAILY [facility] Last Admin: 08/31/22 09:17 Dose: 100 mg Trazodone HCl (Trazodone Hcl 50 Mg Tablet) 50 mg PO BEDTIME PRN PRN Reason: Insomnia Trazodone HCl (Trazodone Hcl 100 Mg Tablet) 100 mg PO BEDTIME [facility] Last Admin: 08/30/22 20:34 Dose: 100 mg Allergies Allergies Allergy/AdvReac Type Severity Reaction Status Date / Time No Known Allergies Allergy Unverified 08/15/20 19:32 [No Known Allergies*] Assessment & Plan Assessment & Plan (1) Schizoaffective disorder: Status: Acute Code(s): F25.9 - Schizoaffective disorder, unspecified Assessment and Plan: continue current treatment plan encourage pt to be out of room more as tolerated, attend to ADLS, engage in groups or mileu Plan 36 yo female, hx of schizoaffective disorder, currently off medications, with active sx. Hx of alcohol use disorder, pt reports recent relapse, drinking 1-2 daily and without detox sx. Will put CIWA in place to monitor. Pt reports target sx is anxiety. Will re-start Gabapentin, Propranolol along with Risperdal and monitor Plan: As noted above Monitor Family collateral contact Pt believes she could return to [facility] to live with the family. 08/28/22- Continue current regime EKG-use of atypicals. 08/31/22- Aftercare planning. Pt reports she will return to family in the [facility]. I spent minutes with the patient and/or on the patient floor today, greater than?50% of which was spent counseling/coordinating care. Patient educated on: therapeutic strategies Informed Consent: understands and further education needed Reason for contiued inpatient stay Substantial Risk for: rapid decompensation
[2022-08-31] MEDS: traZODone HCL 100 MG TABLET PO (19:25)
[2022-08-31] MEDS: QUEtiapine Fumarate 50 MG TABLET PO (19:26)
[2022-09-01 06:00] VITALS: BP 108/74; PULSE 106; RESP 16; TEMP 36.8; O2SAT 98
[2022-09-01] MEDS: QUEtiapine Fumarate 50 MG TABLET PO (06:49)
[2022-09-01] MEDS: hydrOXYzine HCL 25 MG TABLET PO (06:49)
[2022-09-01] MEDS: Thiamine HCL 100 MG TABLET PO (08:40)
[2022-09-01] MEDS: Propranolol HCL 10 MG TABLET PO (08:40)
[2022-09-01] MEDS: Benztropine Mesylate 1 MG TABLET PO ×2 (08:40→19:58)
[2022-09-01] MEDS: risperiDONE 2 MG TABLET PO ×2 (08:40→19:58)
[2022-09-01] MEDS: Cyanocobalamin (Vitamin B-12) 1,000 MCG TABLET 1000 MCG PO (08:40)
[2022-09-01] MEDS: Gabapentin 400 MG CAPSULE PO (08:40)
[2022-09-01] MEDS: Gabapentin 300 MG CAPSULE PO ×2 (14:27→19:58)
[2022-09-01 18:00] VITALS: BP 118/73; PULSE 94; RESP 16; TEMP 36.4; O2SAT 98
--- NOTE | 2022-09-01 18:50 | P.PNPSI_ITS ---
Subjective Subjective Date of Service: 09/01/22 Reason For Visit: Schizoaffecive D/O Subjective Notes: Conditional Voluntary Healthcare Proxy: No Guardianship: No Interim History: Oversedated. Will decrease Gabapentin, Propranolol, Seroquel, Trazodone. Spending much time in bed. Reports she will not be able to return to family home in the [place]. Discussed with pt options. She was unclear where she was staying prior to this admission- review of records indicates staying with an ex-boyfriend who brought her to [facility] as she was abusing medications. Hx of Section January from [facility]. Discussed with pt if we could refer to [facility] and apply for [facility] Care Mgt services. 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 Medication Compliance: Yes Side effects from medications: No Attending Groups: Intermittent Review of Systems Acute medical concerns: No Medical Review of Systems: unchanged Mental Status Exam Mental Status Exam Patient Appearance: Fatigued Patient Orientation: Person, Place, Time and Situation Level of Consciousness: Alert Patient Behavior: Talkative and Good Eye Contact Mood Description: Flat Affect Description: Flat Patient Cognition Impaired: No Ability to Follow Directions: Good Speech Pattern: Monotone, Spontaneous Speech and Soft-Spoken Memory Description: Episodic Impaired Hallucinations: None Delusions: Present Perceptual Disturbances: Depersonalization and Derealization Thought Process: Distracted Thought Content: positive for Suicidal Ideation (denies) Depressive Symptoms: Sleeping More Than Usual and Thoughts of /Suicide (denies) Judgement: Fair Diagnostics Vital Signs (24Hr): Vital Signs - 24 hr 09/01/22 06:00 Temperature 98.2 F Pulse Rate 106 H Respiratory Rate 16 Blood Pressure 108/74 Pulse Oximetry 98 Oxygen Delivery Method Room Air Labs Results: 08/26/22 08:16 Medications Medications Current Medications Acetaminophen (Acetaminophen 325 Mg Tablet) 650 mg PO Q6H PRN PRN Reason: Headache/Pain Mild Scale (1-3) Al Hydroxide/Mg Hydroxide (Magnesium Hydrox/Alum Hydrox 30 Ml Oral.Susp) 30 ml PO Q6H PRN PRN Reason: Heartburn/Nausea Benztropine Mesylate (Benztropine Mesylate 1 Mg Tablet) 1 mg PO BID [facility] Last Admin: 09/01/22 08:40 Dose: 1 mg Cyanocobalamin (Cyanocobalamin (Vitamin B-12) 1,000 Mcg Tablet) 1,000 mcg PO DAILY [facility] Last Admin: 09/01/22 08:40 Dose: 1,000 mcg Gabapentin (Gabapentin 300 Mg Capsule) 300 mg PO TID [facility] Last Admin: 09/01/22 14:27 Dose: 300 mg Hydrocortisone (Hydrocortisone 1 % Ointment 28.35 Gm Tube) 1 appl TOPICAL BID [facility]; Protocol Last Admin: 09/01/22 08:41 Dose: Not Given Hydroxyzine HCl (Hydroxyzine Hcl 25 Mg Tablet) 25 mg PO Q6H PRN PRN Reason: Anxiety Last Admin: 09/01/22 06:49 Dose: 25 mg Magnesium Hydroxide (Milk Of Magnesia 30 Ml Oral.Susp) 30 ml PO DAILY PRN PRN Reason: Constipation Propranolol HCl (Propranolol Hcl 10 Mg Tablet) 5 mg PO TID [facility]; Protocol PRN Reason: anxiety Quetiapine Fumarate (Quetiapine Fumarate 50 Mg Tablet) 50 mg PO BID PRN PRN Reason: anxiety Last Admin: 09/01/22 06:49 Dose: 50 mg Risperidone (Risperidone 2 Mg Tablet) 2 mg PO BID [facility] Last Admin: 09/01/22 08:40 Dose: 2 mg Thiamine HCl (Thiamine Hcl 100 Mg Tablet) 100 mg PO DAILY [facility] Last Admin: 09/01/22 08:40 Dose: 100 mg Trazodone HCl (Trazodone Hcl 50 Mg Tablet) 50 mg PO BEDTIME PRN PRN Reason: Insomnia Allergies Allergies Allergy/AdvReac Type Severity Reaction Status Date / Time No Known Allergies Allergy Unverified 08/15/20 19:32 [No Known Allergies*] Assessment & Plan Assessment & Plan (1) Schizoaffective disorder: Status: Acute Code(s): F25.9 - Schizoaffective disorder, unspecified Assessment and Plan: continue current treatment plan encourage pt to be out of room more as tolerated, attend to ADLS, engage in groups or mileu Plan 36 yo female, hx of schizoaffective disorder, currently off medications, with active sx. Hx of alcohol use disorder, pt reports recent relapse, drinking 1-2 daily and without detox sx. Will put CIWA in place to monitor. Pt reports target sx is anxiety. Will re-start Gabapentin, Propranolol along with Risperdal and monitor Plan: As noted above Monitor Family collateral contact Pt believes she could return to [facility] to live with the family. 08/28/22- Continue current regime EKG-use of atypicals. 08/31/22- Aftercare planning. Pt reports she will return to family in the [facility]. 09/01/22- Oversedated. Decrease Gabapentin to 300 mg tid Change Propranolol to 5 mg tid prn Discontinue HS Seroquel-leave prn dosing intact Discontinue HS Trazodone-leave prn dosing in tact Pt reports a return to family home in the [facility] is not an option. We discussed referral to [facility]i.e. [facility]. She declines and signed a three day notice of intent. I spent minutes with the patient and/or on the patient floor today, greater than?50% of which was spent counseling/coordinating care. Patient educated on: therapeutic strategies Informed Consent: understands and further education needed Reason for contiued inpatient stay Substantial Risk for: rapid decompensation
[2022-09-02 06:00] VITALS: BP 105/62
[2022-09-02] MEDS: Benztropine Mesylate 1 MG TABLET PO ×2 (08:45→21:48)
[2022-09-02] MEDS: Thiamine HCL 100 MG TABLET PO (08:45)
[2022-09-02] MEDS: Gabapentin 300 MG CAPSULE PO ×3 (08:45→21:48)
[2022-09-02] MEDS: risperiDONE 2 MG TABLET PO ×2 (08:45→21:48)
[2022-09-02] MEDS: Cyanocobalamin (Vitamin B-12) 1,000 MCG TABLET 1000 MCG PO (08:45)
[2022-09-02 16:35] VITALS: BP 119/59; PULSE 90; RESP 16; TEMP 36.2; O2SAT 98
--- NOTE | 2022-09-02 18:37 | P.PNPSI_ITS ---
Subjective Subjective Date of Service: 09/02/22 Reason For Visit: Schizoaffecive D/O Subjective Notes: 3 Day (09/04/22) Interim History: Three day notice to 09/04/22. Tolerating medication decreases. Declines CSS/TSS, however will accept referrals for out patient treatment and for assistance in preparing to find work. Continues with sedation at times- I sleep to avoid thinking about things that I cannot fix . Denies SI, HI at this time and feels she is preparing for discharge. Plans to return to live with an ex-partner upon discharge. Discussed this being a safe place (he brought her in for treatment prior to admission). Medication Compliance: Yes Side effects from medications: No Attending Groups: No Review of Systems Acute medical concerns: No Medical Review of Systems: unchanged Mental Status Exam Mental Status Exam Patient Appearance: Fatigued Patient Orientation: Person, Place, Time and Situation Level of Consciousness: Alert Patient Behavior: Talkative and Good Eye Contact Mood Description: Flat Affect Description: Flat Patient Cognition Impaired: No Ability to Follow Directions: Good Speech Pattern: Monotone, Spontaneous Speech and Soft-Spoken Memory Description: Episodic Impaired Hallucinations: None Delusions: Present Perceptual Disturbances: Depersonalization and Derealization Thought Process: Distracted Thought Content: positive for Suicidal Ideation (denies) Depressive Symptoms: Sleeping More Than Usual and Thoughts of /Suicide (denies) Judgement: Fair Diagnostics Vital Signs (24Hr): Vital Signs - 24 hr 09/02/22 06:00 09/02/22 16:35 Temperature 97.1 F Pulse Rate 90 Respiratory Rate 16 Blood Pressure 105/62 119/59 L Pulse Oximetry 98 Oxygen Delivery Method Room Air Labs Results: 08/26/22 08:16 Medications Medications Current Medications Acetaminophen (Acetaminophen 325 Mg Tablet) 650 mg PO Q6H PRN PRN Reason: Headache/Pain Mild Scale (1-3) Al Hydroxide/Mg Hydroxide (Magnesium Hydrox/Alum Hydrox 30 Ml Oral.Susp) 30 ml PO Q6H PRN PRN Reason: Heartburn/Nausea Benztropine Mesylate (Benztropine Mesylate 1 Mg Tablet) 1 mg PO BID [facility] Last Admin: 09/02/22 08:45 Dose: 1 mg Cyanocobalamin (Cyanocobalamin (Vitamin B-12) 1,000 Mcg Tablet) 1,000 mcg PO DAILY [facility] Last Admin: 09/02/22 08:45 Dose: 1,000 mcg Gabapentin (Gabapentin 300 Mg Capsule) 300 mg PO TID [facility] Last Admin: 09/02/22 14:39 Dose: 300 mg Hydrocortisone (Hydrocortisone 1 % Ointment 28.35 Gm Tube) 1 appl TOPICAL BID [facility]; Protocol Last Admin: 09/02/22 08:45 Dose: Not Given Hydroxyzine HCl (Hydroxyzine Hcl 25 Mg Tablet) 25 mg PO Q6H PRN PRN Reason: Anxiety Last Admin: 09/01/22 06:49 Dose: 25 mg Magnesium Hydroxide (Milk Of Magnesia 30 Ml Oral.Susp) 30 ml PO DAILY PRN PRN Reason: Constipation Propranolol HCl (Propranolol Hcl 10 Mg Tablet) 5 mg PO TID PRN; Protocol PRN Reason: anxiety Quetiapine Fumarate (Quetiapine Fumarate 50 Mg Tablet) 50 mg PO BID PRN PRN Reason: anxiety Last Admin: 09/01/22 06:49 Dose: 50 mg Risperidone (Risperidone 2 Mg Tablet) 2 mg PO BID [facility] Last Admin: 09/02/22 08:45 Dose: 2 mg Thiamine HCl (Thiamine Hcl 100 Mg Tablet) 100 mg PO DAILY [facility] Last Admin: 09/02/22 08:45 Dose: 100 mg Trazodone HCl (Trazodone Hcl 50 Mg Tablet) 50 mg PO BEDTIME PRN PRN Reason: Insomnia Allergies Allergies Allergy/AdvReac Type Severity Reaction Status Date / Time No Known Allergies Allergy Unverified 08/15/20 19:32 [No Known Allergies*] Assessment & Plan Assessment & Plan (1) Schizoaffective disorder: Status: Acute Code(s): F25.9 - Schizoaffective disorder, unspecified Assessment and Plan: continue current treatment plan encourage pt to be out of room more as tolerated, attend to ADLS, engage in groups or mileu. 09/02/22- Three day notice to 09/04. Pt planning to discharge to ex- partner's home. Declines residential referral. Will accept referrals for out patient care and assistance with her search for work. Plan 36 yo female, hx of schizoaffective disorder, currently off medications, with active sx. Hx of alcohol use disorder, pt reports recent relapse, drinking 1-2 daily and without detox sx. Will put [facility] in place to monitor. Pt reports target sx is anxiety. Will re-start Gabapentin, Propranolol along with Risperdal and monitor Plan: As noted above Monitor Family collateral contact Pt believes she could return to [facility] to live with the family. 08/28/22- Continue current regime EKG-use of atypicals. 08/31/22- Aftercare planning. Pt reports she will return to family in the [facility]. 09/01/22- Oversedated. Decrease Gabapentin to 300 mg tid Change Propranolol to 5 mg tid prn Discontinue HS Seroquel-leave prn dosing intact Discontinue HS Trazodone-leave prn dosing intact Pt reports a return to family home in the [facility] is not an option. We discussed referral to TSS/CSS~i.e. [facility]. She declines and signed a three day notice of intent. I spent minutes with the patient and/or on the patient floor today, greater than?50% of which was spent counseling/coordinating care. Patient educated on: medication risk/benefits and therapeutic strategies Informed Consent: understands Reason for contiued inpatient stay Substantial Risk for: inability to function and rapid decompensation
[2022-09-03 06:00] VITALS: BP 118/65; PULSE 80; RESP 16; TEMP 36.6; O2SAT 96
[2022-09-03] MEDS: Gabapentin 300 MG CAPSULE PO ×3 (08:14→19:21)
[2022-09-03] MEDS: Benztropine Mesylate 1 MG TABLET PO ×2 (08:14→19:21)
[2022-09-03] MEDS: risperiDONE 2 MG TABLET PO ×2 (08:14→19:20)
[2022-09-03] MEDS: Cyanocobalamin (Vitamin B-12) 1,000 MCG TABLET 1000 MCG PO (08:14)
[2022-09-03] MEDS: Thiamine HCL 100 MG TABLET PO (08:14)
[2022-09-03] MEDS: QUEtiapine Fumarate 50 MG TABLET PO (14:55)
[2022-09-03 18:00] VITALS: BP 121/74; PULSE 101; RESP 16; TEMP 36.6; O2SAT 97
--- NOTE | 2022-09-04 00:08 | HO.PSYCHPN ---
Subjective Subjective Date of Service: 09/03/22 Reason For Visit: Schizoaffecive D/O Subjective Notes: 3 Day Interim History: Three day notice to 09/04. Pt reports feeling well, no SI, denies fears, perceptual alterations. Tells team of L shoulder pain. When asked today, she denies this. Remains sedate with recent medication tapering, will continue. Visable in milieu, with peers, however, she has no participation in milieu therapy groups. Medication Compliance: Yes Side effects from medications: No Attending Groups: No Review of Systems Acute medical concerns: No Medical Review of Systems: unchanged Mental Status Exam Mental Status Exam Patient Appearance: Fatigued Patient Orientation: Person, Place, Time and Situation Level of Consciousness: Alert Patient Behavior: Talkative and Good Eye Contact Mood Description: Flat Affect Description: Flat Patient Cognition Impaired: No Ability to Follow Directions: Good Speech Pattern: Monotone, Spontaneous Speech and Soft-Spoken Memory Description: Episodic Impaired Hallucinations: None Delusions: Present Perceptual Disturbances: Depersonalization and Derealization Thought Process: Distracted Thought Content: positive for Suicidal Ideation (denies) Depressive Symptoms: Sleeping More Than Usual and Thoughts of /Suicide (denies) Judgement: Fair Diagnostics Vital Signs (24Hr): Vital Signs - 24 hr 09/03/22 06:00 09/03/22 18:00 Temperature 97.9 F 98 F Pulse Rate 80 101 H Respiratory Rate 16 16 Blood Pressure 118/65 121/74 Pulse Oximetry 96 97 Oxygen Delivery Method Room Air Room Air Labs Results: 08/26/22 08:16 Medications Medications Current Medications Acetaminophen (Acetaminophen 325 Mg Tablet) 650 mg PO Q6H PRN PRN Reason: Headache/Pain Mild Scale (1-3) Al Hydroxide/Mg Hydroxide (Magnesium Hydrox/Alum Hydrox 30 Ml Oral.Susp) 30 ml PO Q6H PRN PRN Reason: Heartburn/Nausea Benztropine Mesylate (Benztropine Mesylate 1 Mg Tablet) 1 mg PO BID [facility] Last Admin: 09/03/22 19:21 Dose: 1 mg Cyanocobalamin (Cyanocobalamin (Vitamin B-12) 1,000 Mcg Tablet) 1,000 mcg PO DAILY [facility] Last Admin: 09/03/22 08:14 Dose: 1,000 mcg Gabapentin (Gabapentin 300 Mg Capsule) 300 mg PO TID [facility] Last Admin: 09/03/22 19:21 Dose: 300 mg Hydrocortisone (Hydrocortisone 1 % Ointment 28.35 Gm Tube) 1 appl TOPICAL BID [facility]; Protocol Last Admin: 09/03/22 20:04 Dose: Not Given Hydroxyzine HCl (Hydroxyzine Hcl 25 Mg Tablet) 25 mg PO Q6H PRN PRN Reason: Anxiety Last Admin: 09/01/22 06:49 Dose: 25 mg Magnesium Hydroxide (Milk Of Magnesia 30 Ml Oral.Susp) 30 ml PO DAILY PRN PRN Reason: Constipation Propranolol HCl (Propranolol Hcl 10 Mg Tablet) 5 mg PO TID PRN; Protocol PRN Reason: anxiety Quetiapine Fumarate (Quetiapine Fumarate 50 Mg Tablet) 50 mg PO BID PRN PRN Reason: anxiety Last Admin: 09/03/22 14:55 Dose: 50 mg Risperidone (Risperidone 2 Mg Tablet) 2 mg PO BID [facility] Last Admin: 09/03/22 19:20 Dose: 2 mg Thiamine HCl (Thiamine Hcl 100 Mg Tablet) 100 mg PO DAILY [facility] Last Admin: 09/03/22 08:14 Dose: 100 mg Trazodone HCl (Trazodone Hcl 50 Mg Tablet) 50 mg PO BEDTIME PRN PRN Reason: Insomnia Allergies Allergies Allergy/AdvReac Type Severity Reaction Status Date / Time No Known Allergies Allergy Unverified 08/15/20 19:32 [No Known Allergies*] Assessment & Plan Assessment & Plan (1) Schizoaffective disorder: Status: Acute Code(s): F25.9 - Schizoaffective disorder, unspecified Assessment and Plan: continue current treatment plan encourage pt to be out of room more as tolerated, attend to ADLS, engage in groups or mileu Plan 36 yo female, hx of schizoaffective disorder, currently off medications, with active sx. Hx of alcohol use disorder, pt reports recent relapse, drinking 1-2 daily and without detox sx. Will put [facility] in place to monitor. Pt reports target sx is anxiety. Will re-start Gabapentin, Propranolol along with Risperdal and monitor Plan: As noted above Monitor Family collateral contact Pt believes she could return to [facility] to live with the family. 08/28/22- Continue current regime EKG-use of atypicals. 08/31/22- Aftercare planning. Pt reports she will return to family in the [facility]. 09/01/22- Oversedated. Decrease Gabapentin to 300 mg tid Change Propranolol to 5 mg tid prn Discontinue HS Seroquel-leave prn dosing intact Discontinue HS Trazodone-leave prn dosing intact Pt reports a return to family home in the [facility] area is not an option. We discussed referral to TSS/[facility]i.e. [facility]. She declines and signed a three day notice of intent. 09/03/22 Discharge 09/04/22. I spent minutes with the patient and/or on the patient floor today, greater than?50% of which was spent counseling/coordinating care. Patient educated on: therapeutic strategies Informed Consent: understands Reason for contiued inpatient stay Substantial Risk for: stable for discharge
--- NOTE | 2022-09-04 04:02 | PM.PSYDC ---
DS: Providers Provider Date of Service: 09/04/22 Date of admission: 08/25/22 17:03 Date of discharge: 09/04/22 Primary care physician: None Physician Admitting clinician: Monika Sr Attending physician on admission: Sami Cody Consults: 08/25/22 17:33 Consult to Hospitalist Routine Consulting Provider: Hospitalist Reason For Exam: h&P medical Attending physician on discharge: Sami Cody Discharging clinician: Monika Sr DS: Diagnosis Discharge Diagnosis (1) Schizoaffective disorder: Status: Acute DS: Medications Discharge Medications Home Medications: Previous Rx's Medication Instructions Recorded benztropine 0.5 mg tablet 0.5 mg PO BID #30 tabs 09/04/22 cyanocobalamin (vitamin B-12) 1,000 mcg PO DAILY #30 tabs 09/04/22 1,000 mcg tablet (Vitamin B-12) gabapentin 300 mg capsule 300 mg PO TID #21 caps 09/04/22 hydrocortisone 1 % topical ointment 1 appl topical BID #1 applicator 09/04/22 quetiapine 50 mg tablet 50 mg PO BID PRN anxiety #14 tabs 09/04/22 risperidone 2 mg tablet 2 mg PO BID #60 tabs 09/04/22 thiamine mononitrate (vit B1) 100 100 mg PO DAILY #30 tabs 09/04/22 mg tablet Mental Status Exam Mental Status Exam Patient Appearance: Fatigued Patient Orientation: Person, Place, Time and Situation Level of Consciousness: Alert Patient Behavior: Talkative and Good Eye Contact Mood Description: Flat Affect Description: Flat Patient Cognition Impaired: No Ability to Follow Directions: Good Speech Pattern: Monotone, Spontaneous Speech and Soft-Spoken Memory Description: Episodic Impaired Hallucinations: None Delusions: Present Perceptual Disturbances: Depersonalization and Derealization Thought Process: Distracted Thought Content: positive for Suicidal Ideation (denies) Depressive Symptoms: Sleeping More Than Usual and Thoughts of /Suicide (denies) Judgement: Fair DS: Summary Hospital Course Hospital Course: Admission to adult psychiatry for exacerbation of symptoms of schizoaffective disorder. Seroquel, Risperdal, Gabapentin and Benztropine were initiated, tolerated and assisted in positive symptom management. Time spent discussing smoking cessation with patient: 3 to 10 minutes Status at Discharge Functional status at discharge: independent ambulation Overall status at discharge: patient is progressing back to baseline Time Spent with Patient Time attestation: Total time spent providing and/or coordinating discharge services: Discharge Plan Discharge Anticipated Discharge Date/Time: 09/04/22 15:46 Patient Disposition: Home, Self-Care Discharge Diagnosis: Schizoaffective Disorder Referrals: Viviane Scott (Therapy Intake) [Other] - 09/08/22 11:00 am (In office appointment. Once you complete therapy intake you will be scheduled for a psychiatry appointment. Community support program (CSP) referral was submitted. MANAGING CONSULTANT CLINICAL PROFESSOR will follow up with you. ) [facility] [Other] - 1 Week Physician,None [Primary Care Provider] - 1 Week Discharge Medications: New hydrocortisone 1 % Ointment 1 appl topical BID Qty: 1 0RF Protocol: Apply to: Apply to: corner of mouth cyanocobalamin (vitamin B-12) [Vitamin B-12] 1,000 mcg Tablet 1,000 mcg PO DAILY Qty: 30 0RF risperidone 2 mg Tablet 2 mg PO BID Qty: 60 0RF gabapentin 300 mg Capsule 300 mg PO TID Qty: 21 4RF quetiapine 50 mg Tablet 50 mg PO BID PRN (Reason: anxiety) Qty: 14 1RF thiamine mononitrate (vit B1) 100 mg Tablet 100 mg PO DAILY Qty: 30 0RF benztropine 0.5 mg tablet 0.5 mg PO BID Qty: 30 1RF Discharge Orders: Discharge Order (Routine); Ordered 09/04/22 Ordered By: Monika Sr Diet: Advance to usual diet Activity on Discharge: As tolerated Stand Alone Forms: Patient Portal Discharge page, Community Support Care Plan Goals: Maintain mood and safe behaviors Take medications as directed Practice coping skills Follow up with out patient providers and connect with them as needed Health Concerns: Mood and stable behaviors Plan of Treatment: Follow up with out patient providers Take medications as directed Assessment: Sherley reports she is prepared to leave. She has accepted out patient referrals for treatment and for assistance in a search for work She denies SI, HI She has no sx of cisco or psychosis Discharge Date/Time: 09/04/22 15:35
[2022-09-04] MEDS: Gabapentin 300 MG CAPSULE PO ×2 (08:40→14:42)
[2022-09-04] MEDS: risperiDONE 2 MG TABLET PO (08:40)
[2022-09-04] MEDS: Benztropine Mesylate 1 MG TABLET PO (08:40)
[2022-09-04] MEDS: Thiamine HCL 100 MG TABLET PO (08:40)
[2022-09-04] MEDS: Cyanocobalamin (Vitamin B-12) 1,000 MCG TABLET 1000 MCG PO (08:40)
[2022-09-04] MEDS: QUEtiapine Fumarate 50 MG TABLET PO (09:59)
[2022-09-04 11:24] VITALS: BP 120/85; PULSE 96; RESP 18; TEMP 36.2
== END 2022-09-04 15:35 | disposition home or self-care (01) | DRG 750 ==
PROVIDERS: Social Worker; Admitting Provider Psychiatry & Neurology Psychiatry; Visit Provider Clinical Nurse Specialist Psychiatric/Mental Health, Adult
DX: F25.9 Schizoaffective disorder, unspecified (principal); R45.851 Suicidal ideations; F19.10 Other psychoactive substance abuse, uncomplicated; K13.0 Diseases of lips; F41.9 Anxiety disorder, unspecified; Z87.891 Personal history of nicotine dependence; Z79.899 Other long term (current) drug therapy
CPT/HCPCS: 36415; 80053; 80061; 82607; 82746; 83036; 84443; 90792; 93005